=== PATIENT | male | born 1990 | race Caucasian/White ===

== ENCOUNTER → 2016-12-20 | Outpatient (CLI) | payer OTHER ==
--- NOTE | 2016-12-21 13:02 | RAD ---
Subluxation is identified. Electronically signed by: Ayan Mccord MD 12/21/2016 1:02 PM CDT
--- NOTE | 2016-12-21 13:11 | RAD ---
EXAM DESCRIPTION: Foot,Left 2 Views CLINICAL HISTORY: 26 years, Male, PAIN IN FOOT COMPARISON: No priors FINDINGS: Prior surgery with fixation across the first tarsometatarsal joint. Also fixation across the medial and mid cuneiforms. No findings of hardware failure. Mild hallux valgus spurring laterally with adjacent submillimeter calcific density lateral to the joint space. Other bones and joints intact. IMPRESSION: Postsurgical changes medial midfoot without any findings of hardware failure. Moderate presumed posttraumatic changes first metatarsophalangeal joint. No acute bony injury. Electronically signed by: Ayan Mccord MD 12/21/2016 1:11 PM CDT
== END | disposition home or self-care (01) ==
LOC: RAD 15:52
PROVIDERS: ATTEND Nurse Practitioner Family
DX: M79.672 Pain in left foot (principal); M79.671 Pain in right foot

== ENCOUNTER 2019-09-23 18:26 | Emergency (ER) | payer OTHER ==
[2019-09-23 18:48] VITALS: TEMP 97.5
--- NOTE | 2019-09-23 19:43 | RAD ---
EXAM DESCRIPTION: XR Chest,2 Views CLINICAL HISTORY: fu picc line removal TECHNIQUE: Two views of the chest are submitted. COMPARISON: 09/16/2015 FINDINGS: Heart: The cardiothoracic silhouette is within normal limits. Lungs: No focal consolidation. Mediastinum: Unremarkable Pleura: No appreciable effusion. No pneumothorax. Bones: Intact Upper abdomen: Unremarkable IMPRESSION: No acute disease. No evidence for retained PICC. Electronically signed by: Marya Brown MD 09/23/2019 7:42 PM [employer]
--- NOTE | 2019-09-23 20:00 | ED.PDOC ---
History of Present Illness - General Chief Complaint: General Stated Complaint: PICC line problem Time Seen by Provider: 09/23/19 19:07 Source: patient Exam Limitations: no limitations - History of Present Illness Initial Comments: The patient is a male presented emergency room secondary to being sent up here from [facility] for IV antibiotic therapy. The patient had finished his rounds of IV antibiotic therapy. He was sent here because as his PICC line was being removed, the nurse felt resistance and stopped. Upon my evaluation there was no resistance with removing the PICC line. There is a small clot at the end of the PICC line but is obviously been present for a long time and was likely the reason that the PICC line was not drawing. Length that the PICC line ends is at the 42.5 cm kris. These lines are cut when placed. Family is concerned that it may have broken off inside. This looks like a very clean cut and the clot at the end is obviously old and very stuck. If it did break off it would have done so at least several days ago. No chest pain or shortness of breath. I see no evidence of tearing. It is flush across. Timing/Duration: momentarily Severity: mild Improving Factors: nothing Allergies/Adverse Reactions: Allergies Cefaclor [From Ceclor] Allergy (Verified 03/23/15 23:44) Ceftriaxone [From Rocephin] Allergy (Verified 03/23/15 23:44) Penicillins Allergy (Verified 03/23/15 23:44) Sulfamethoxazole w/Trimethoprim [From Bactrim] Allergy (Verified 03/23/15 23:44) Home Medications: Ambulatory Orders Amitriptyline HCl 100 mg PO BEDTIME 02/26/14 Baclofen 20 mg PO TID 02/26/14 Lisdexamfetamine Dimesylate [Vyvanse] 70 mg PO DAILY 02/26/14 Acyclovir 5 % Cream [Zovirax Cream] 5 % EX TID 03/24/15 Cyclobenzaprine HCl 5 mg PO TID PRN 03/24/15 Donepezil HCl [Aricept] 10 mg PO DAILY 03/24/15 Esomeprazole Magnesium [Nexium] 40 mg PO QPM 03/24/15 Fluticasone/Salmeterol 100/50 [Advair Diskus] 1 puff INH BID 03/24/15 HYDROcodone 7.5MG/APAP 325MG [[place] 7.5/325] 1 ea PO Q12HRS PRN 03/24/15 Hydroxyzine Pamoate 25 mg PO QID PRN 03/24/15 Indomethacin 50 mg PO DAILY PRN 03/24/15 Levalbuterol Tartrate [Xopenex Hfa] 45 mcg IN Q4HWA PRN 03/24/15 Methocarbamol 1,500 mg PO TID 03/24/15 Mometasone Furoate (Nasal) [Nasonex] 50 mcg NA BID 03/24/15 Pregabalin [Lyrica] 150 mg PO BID 03/24/15 Probiotic Product [Rezyst IM] 1 chw PO DAILY 03/24/15 Tretinoin 0.05 % EX QPM 03/24/15 cloNAZepam [KlonoPIN] 0.5 mg PO BID 03/24/15 Review of Systems - Review of Systems Constitutional: States: no symptoms reported EENTM: States: no symptoms reported Respiratory: States: no symptoms reported Cardiology: States: no symptoms reported Gastrointestinal/Abdominal: States: no symptoms reported Genitourinary: States: no symptoms reported Musculoskeletal: States: no symptoms reported Skin: States: no symptoms reported Neurological: States: no symptoms reported All other Systems: No Change from Baseline Past Medical History (General) - Patient Medical History Hx Seizures: No Hx Stroke: No Hx Dementia: No Hx Asthma: Yes Hx of COPD: No Hx Cardiac Disorders: Yes - Tachacardia Hx Congestive Heart Failure: No Hx Pacemaker: No Hx Hypertension: No Hx Thyroid Disease: No Hx Diabetes: No Hx Gastroesophageal Reflux: No Hx Renal Disease: No Hx Cancer: No Hx of HIV: No Hx Hepatitis C: No Hx MRSA: No Surgical History: other - Vaccination History Hx Tetanus, Diphtheria Vaccination: Yes Hx Influenza Vaccination: No Hx Pneumococcal Vaccination: No - Social History Hx Tobacco Use: Yes Hx Chewing Tobacco Use: Yes Tins Per Day Chewed: 1 Hx Alcohol Use: No Hx Substance Use: No Hx Substance Use Treatment: No Hx Depression: No Feels Threatened In Home Enviroment: No Feels Threatened In a Relationship: No Hx Physical Abuse: No Hx Emotional Abuse: No Hx Suspected Abuse: No - Female History Patient is a Female of Child Bearing Age (10 -59 yrs old): No Patient : No - Triage Comment ED Triage Comment: The patient has a Pic line in his Right arm and was being discharged from the [facility] after having IV antibiotic treatments and the staff could not remove the line. The biomedical repair technician at the [facility] advis ed that staff to send the patient to the ER for PIC line removal. Family Medical History - Family History Mother Family History: No Known Living Status: Still Living Physical Exam - Physical Exam General Appearance: Alert, Comfortable, No apparent distress Eye Exam: bilateral normal Ears, Nose, Throat: hearing grossly normal, normal pharynx Neck: full range of motion, supple Respiratory: lungs clear, normal breath sounds, no respiratory distress, no accessory muscle use Cardiovascular/Chest: normal peripheral pulses, no edema, other - Regular rate Peripheral Pulses: radial,right: 2+, radial,left: 2+ Gastrointestinal/Abdominal: non tender, soft Rectal Exam: deferred Back Exam: no CVA tenderness, no vertebral tenderness Extremity: normal range of motion, no calf tenderness, normal capillary refill Neurologic: pedodontist II-XII nml as tested, alert, normal mood/affect, oriented x 3 Skin Exam: normal color Comments: Vital Signs - 24 hr 09/23/19 09/23/19 18:36 19:27 Temperature 97.5 F L Pulse Rate [R 97 H 87 Finger] Respiratory 14 14 Rate Blood Pressure 119/78 115/76 [Left Arm] O2 Sat by Pulse 100 100 Oximetry Progress - Progress Progress: 09/23/19 20:00 The patient is a 28-year-old male presenting here for PICC line removal. Again the PICC line withdrew without any significant pressure by me. There is a long-term fixed clot at the end of the catheter. The site at the end of the catheter is at 42.5 cm kris. X-ray of the chest shows no evidence of any residual catheter. Family can contact [facility] tomorrow for a note for the PICC line placement to confirm that that was the length that the line was cut at. The end of the catheter looks like an intentional cut to me. I see no evidence of tearing. No evidence of any clinical instability. ER warnings are given. Bandage can be taken down tomorrow. [email or web address] [id number] Departure - Departure Clinical Impression: PIC line (peripherally inserted central catheter) removal Disposition: Discharge to Home or Self Care Condition: Fair Departure Forms: ED Discharge - Pt. Copy, Patient Portal Self Enrollment Instructions: Peripherally-Inserted Central Catheter Diet: regular diet Activity: increase activity as tolerated Referrals: Anni Damon FNP [Primary Care Provider] - 1-2 Weeks Home Medications: Ambulatory Orders Amitriptyline HCl 100 mg PO BEDTIME 02/26/14 Baclofen 20 mg PO TID 02/26/14 Lisdexamfetamine Dimesylate [Vyvanse] 70 mg PO DAILY 02/26/14 Acyclovir 5 % Cream [Zovirax Cream] 5 % EX TID 03/24/15 Cyclobenzaprine HCl 5 mg PO TID PRN 03/24/15 Donepezil HCl [Aricept] 10 mg PO DAILY 03/24/15 Esomeprazole Magnesium [Nexium] 40 mg PO QPM 03/24/15 Fluticasone/Salmeterol 100/50 [Advair Diskus] 1 puff INH BID 03/24/15 HYDROcodone 7.5MG/APAP 325MG [[place] 7.5/325] 1 ea PO Q12HRS PRN 03/24/15 Hydroxyzine Pamoate 25 mg PO QID PRN 03/24/15 Indomethacin 50 mg PO DAILY PRN 03/24/15 Levalbuterol Tartrate [Xopenex Hfa] 45 mcg IN Q4HWA PRN 03/24/15 Methocarbamol 1,500 mg PO TID 03/24/15 Mometasone Furoate (Nasal) [Nasonex] 50 mcg NA BID 03/24/15 Pregabalin [Lyrica] 150 mg PO BID 03/24/15 Probiotic Product [Rezyst IM] 1 chw PO DAILY 03/24/15 Tretinoin 0.05 % EX QPM 03/24/15 cloNAZepam [KlonoPIN] 0.5 mg PO BID 03/24/15 Additional Instructions: The patient is a 28-year-old male presenting here for PICC line removal. Again the PICC line withdrew without any significant pressure by me. There is a long-term fixed clot at the end of the catheter. The site at the end of the catheter is at 42.5 cm kris. X-ray of the chest shows no evidence of any residual catheter. Family can contact [facility] tomorrow for a note for the PICC line placement to confirm that that was the length that the line was cut at. The end of the catheter looks like an intentional cut to me. I see no evidence of tearing. No evidence of any clinical instability. ER warnings are given. Bandage can be taken down tomorrow.
[2019-09-23 20:06] VITALS: BP 124/84; O2SAT 97
== END 2019-09-23 20:06 | disposition home or self-care (01) ==
LOC: ER 18:26
DX: Z45.2 Encounter for adjustment and management of vascular access device (principal); J45.909 Unspecified asthma, uncomplicated; Z87.891 Personal history of nicotine dependence; Z79.899 Other long term (current) drug therapy; Z88.1 Allergy status to other antibiotic agents; Z88.0 Allergy status to penicillin; Z88.2 Allergy status to sulfonamides